=== PATIENT | female | born 1945 | race Caucasian/White ===

== ENCOUNTER → 2020-04-01 | Outpatient (CLI) | payer OTHER ==
[~2020-04-01] MED LIST: ASPIRIN EC81 M1 PO; ASPIRIN81 M2 PO; ATORVASTATIN CA20 MG PO; COUMADIN 5 MG TA5 M1 PO; ENOXAPARIN30 MG/0.3 SUBQ; LEVOTHYROXIN0.125 M1 PO; LEXAPRO 10 MG T10 M1 PO; LEXAPRO 10 MG T10 M2 PO; LEXAPRO20 MG PO; LOPRESSOR 50 MG50 M1 PO; LOPRESSOR25 PO; LOVENOX100 MG/1 M; NABUMETONE 500500 M1 PO; OTHER MEDICATIONS; PRILOSEC 20 MG20 MG PO; SYNTHROID300 MCG PO; TRAMADOL 50 MG50 MG; VITAMIN D350000 UNIT PO
== END ==
LOC: SJCVCIMAG 07:57
PROVIDERS: ATTEND Internal Medicine Cardiovascular Disease
DX: R94.31 Abnormal electrocardiogram [ECG] [EKG] (principal); E78.00 Pure hypercholesterolemia, unspecified; I47.1 Supraventricular tachycardia; D68.59 Other primary thrombophilia; I87.2 Venous insufficiency (chronic) (peripheral); I10 Essential (primary) hypertension; E03.9 Hypothyroidism, unspecified; M19.90 Unspecified osteoarthritis, unspecified site; I25.2 Old myocardial infarction; Z79.82 Long term (current) use of aspirin; Z79.899 Other long term (current) drug therapy; Z87.891 Personal history of nicotine dependence; Z86.711 Personal history of pulmonary embolism

== ENCOUNTER → 2020-12-19 | Outpatient (CLI) | payer OTHER | LOC: SJCVC 12:35 | PROVIDERS: ATTEND Internal Medicine Cardiovascular Disease | DX: I47.1 Supraventricular tachycardia (principal); E78.00 Pure hypercholesterolemia, unspecified; D68.59 Other primary thrombophilia; I87.2 Venous insufficiency (chronic) (peripheral); I25.2 Old myocardial infarction; Z86.711 Personal history of pulmonary embolism; Z88.2 Allergy status to sulfonamides; Z88.8 Allergy status to other drugs, medicaments and biological substances; Z79.82 Long term (current) use of aspirin; Z79.01 Long term (current) use of anticoagulants; Z79.899 Other long term (current) drug therapy; Z87.891 Personal history of nicotine dependence; Z72.89 Other problems related to lifestyle ==